=== PATIENT | female | born 1995 | race Caucasian/White ===

== ENCOUNTER 2017-11-01 13:32 | Inpatient (IN) | payer OTHER ==
[2017-11-01 14:33] LABS: ADD MAN DIFF? NO
[2017-11-01 14:37] LABS: BASOPHIL # 0.1 10^3/ul (0.0-0.1); BASOPHILS % 1.1 % (0.0-2.0); EOSINOPHILS % 0.5 % (0.0-7.0); HEMATOCRIT 42.5 % (37.0-47.0); HEMOGLOBIN 14.4 g/dl (12.0-16.0); LYMPHOCYTES % 27.2 % (15.0-51.0); MEAN CORPUSCULAR HEMOGLOBIN 31.7 pg (29.0-33.0); MEAN CORPUSCULAR HGB CONC 33.9 g/dl (32.0-37.0); MEAN CORPUSCULAR VOLUME 93.6 fl (82.0-101.0); MEAN PLATELET VOLUME 10.6 fl (7.4-10.4); MONOCYTE # 0.5 10^3/ul (0.3-0.9); MONOCYTES % 7.4 % (0.0-11.0); NEUTROPHIL # 4.6 10^3/ul (1.6-7.5); NEUTROPHILS % 63.7 % (39.0-77.0); PLATELET COUNT 299 10^3/UL (140-415); RED BLOOD COUNT 4.54 10^6/ul (4.20-5.40); RED CELL DISTRIBUTION WIDTH 11.6 % (11.5-14.5)
[2017-11-01 14:37] LABS: WHITE BLOOD COUNT 7.3 10^3/ul (4.8-10.8)
[2017-11-01 14:39] LABS: ADD UMIC YES; UR ASCORBIC ACID NEGATIVE (NEGATIVE); UR BILIRUBIN (Dip) NEGATIVE (NEGATIVE); UR BLOOD (Dip) NEGATIVE (NEGATIVE); UR CLARITY CLEAR (CLEAR); UR COLOR STRAW (YELLOW); UR GLUCOSE (Dip) NEGATIVE (NEGATIVE); UR KETONES (Dip) NEGATIVE (NEGATIVE); UR LEUKOCYTE ESTERASE (Dip) 1+ Leu/ul (NEGATIVE); UR NITRITE (Dip) NEGATIVE (NEGATIVE); UR RBC 0 /HPF (0-5); UR SQUAMOUS EPITHELIAL CELL FEW /HPF (FEW); UR TOTAL PROTEIN (Dip) NEGATIVE (NEGATIVE); UR UROBILINOGEN (Dip) NEGATIVE (NEGATIVE); UR WBC 0 /HPF (0-5)
[2017-11-01] MEDS: LORAZEPAM 2 MG INJ IV ×2 (14:57→20:03)
[2017-11-01] MEDS: SOD CHLORIDE 0.9% 1,000 ML IV ×2 (14:59→18:54)
[2017-11-01 15:02] LABS: ANION GAP 17 (8-16)
[2017-11-01 15:03] LABS: ALBUMIN/GLOBULIN RATIO 1.32
[2017-11-01 15:13] LABS: ALANINE AMINOTRANSFERASE 20 IU/L (13-69); ALBUMIN 4.5 g/dl (3.3-4.9); ALKALINE PHOSPHATASE 57 IU/L (42-121); ASPARTATE AMINO TRANSFERASE 24 IU/L (15-46); BILIRUBIN,INDIRECT 0.8 mg/dl (0-1.1); BILIRUBIN,TOTAL 0.8 mg/dl (0.2-1.3); BLOOD UREA NITROGEN 13 mg/dl (7-20); CALCIUM 9.3 mg/dl (8.4-10.2); CARBON DIOXIDE 28 mmol/L (21-31); CHLORIDE 103 mmol/L (97-110); CREATININE 0.83 mg/dl (0.44-1.00); GLUCOSE 82 mg/dl (70-220); SODIUM 144 mmol/L (135-144); TOTAL PROTEIN 7.9 g/dl (6.1-8.1)
[2017-11-01 15:26] LABS: MAGNESIUM 1.9 mg/dl (1.7-2.5)
[2017-11-01] MEDS ORDERED: ACETAMINOPHEN 325 MG TAB PO ×2 (18:30)
[2017-11-01] MEDS ORDERED: morphine 2 MG INJ IV (18:30)
[2017-11-01] MEDS ORDERED: NACL 0.9% 3 ML SYG IV (18:30)
[2017-11-01] MEDS ORDERED: HYDROCODONE/APAP (5/325) TAB PO (18:30)
[2017-11-01] MEDS ORDERED: MAGNESIUM HYDROXIDE 30ML CUP PO (18:30)
[2017-11-01] MEDS ORDERED: DOCUSATE SODIUM 100 MG CAP PO (18:30)
[2017-11-01 18:38] LABS: CREATINE KINASE 89 IU/L (23-200)
[2017-11-01] MEDS: FOSPHENYTOIN (PE) 1,000 MG in SOD CHLORIDE 0.9% 80 ML IVPB (19:05)
[2017-11-01 19:55] LABS: LACTIC ACID 1.3 mmol/L (0.5-2.0)
[2017-11-01] MEDS: LORAZEPAM 0.5 MG TAB PO (20:00)
[2017-11-01] MEDS: ONDANSETRON 4 MG INJ IV (20:23)
[2017-11-02 07:48] LABS: ADD MAN DIFF? NO
[2017-11-02 07:57] LABS: BASOPHIL # 0.1 10^3/ul (0.0-0.1); BASOPHILS % 1.1 % (0.0-2.0); EOSINOPHILS # 0.1 10^3/ul (0.0-0.5); EOSINOPHILS % 1.7 % (0.0-7.0); HEMATOCRIT 37.7 % (37.0-47.0); HEMOGLOBIN 12.9 g/dl (12.0-16.0); LYMPHOCYTES # 2.2 10^3/ul (0.8-2.9); LYMPHOCYTES % 31.2 % (15.0-51.0); MEAN CORPUSCULAR HGB CONC 34.2 g/dl (32.0-37.0); MEAN CORPUSCULAR VOLUME 93.5 fl (82.0-101.0); MEAN PLATELET VOLUME 10.7 fl (7.4-10.4); MONOCYTE # 0.6 10^3/ul (0.3-0.9); MONOCYTES % 7.9 % (0.0-11.0); NEUTROPHIL # 4.1 10^3/ul (1.6-7.5); NEUTROPHILS % 57.8 % (39.0-77.0); PLATELET COUNT 255 10^3/UL (140-415); RED BLOOD COUNT 4.03 10^6/ul (4.20-5.40); RED CELL DISTRIBUTION WIDTH 11.6 % (11.5-14.5)
[2017-11-02 07:57] LABS: WHITE BLOOD COUNT 7.1 10^3/ul (4.8-10.8)
[2017-11-02 08:18] LABS: ALANINE AMINOTRANSFERASE 17 IU/L (13-69); ALBUMIN 3.2 g/dl (3.3-4.9); ALBUMIN/GLOBULIN RATIO 1.23; ALKALINE PHOSPHATASE 43 IU/L (42-121); ANION GAP 10 (8-16); ASPARTATE AMINO TRANSFERASE 16 IU/L (15-46); BILIRUBIN,INDIRECT 0.2 mg/dl (0-1.1); BILIRUBIN,TOTAL 0.2 mg/dl (0.2-1.3); BLOOD UREA NITROGEN 11 mg/dl (7-20); CALCIUM 8.4 mg/dl (8.4-10.2); CARBON DIOXIDE 25 mmol/L (21-31); CHLORIDE 113 mmol/L (97-110); CREATININE 0.77 mg/dl (0.44-1.00); GLUCOSE 86 mg/dl (70-220); SODIUM 144 mmol/L (135-144); TOTAL PROTEIN 5.8 g/dl (6.1-8.1)
[2017-11-02] MEDS: FOSPHENYTOIN IVPB (11:31)
[2017-11-02] MEDS: SOD CHLORIDE 0.9% IVPB (11:31)
[2017-11-02] MEDS: ONDANSETRON 4 MG INJ IV (17:55)
[2017-11-02] MEDS: LEVETIRACETAM 500 MG TAB PO (20:54)
[2017-11-03 07:26] LABS: ADD MAN DIFF? NO
[2017-11-03 07:33] LABS: WHITE BLOOD COUNT 6.6 10^3/ul (4.8-10.8)
[2017-11-03 07:33] LABS: BASOPHIL # 0.1 10^3/ul (0.0-0.1); BASOPHILS % 1.2 % (0.0-2.0); EOSINOPHILS # 0.1 10^3/ul (0.0-0.5); EOSINOPHILS % 1.8 % (0.0-7.0); HEMATOCRIT 39.7 % (37.0-47.0); HEMOGLOBIN 13.3 g/dl (12.0-16.0); LYMPHOCYTES # 2.1 10^3/ul (0.8-2.9); LYMPHOCYTES % 31.2 % (15.0-51.0); MEAN CORPUSCULAR HEMOGLOBIN 31.6 pg (29.0-33.0); MEAN CORPUSCULAR HGB CONC 33.5 g/dl (32.0-37.0); MEAN CORPUSCULAR VOLUME 94.3 fl (82.0-101.0); MEAN PLATELET VOLUME 10.9 fl (7.4-10.4); MONOCYTE # 0.5 10^3/ul (0.3-0.9); MONOCYTES % 8.2 % (0.0-11.0); NEUTROPHIL # 3.8 10^3/ul (1.6-7.5); NEUTROPHILS % 57.4 % (39.0-77.0); PLATELET COUNT 269 10^3/UL (140-415); RED BLOOD COUNT 4.21 10^6/ul (4.20-5.40); RED CELL DISTRIBUTION WIDTH 11.5 % (11.5-14.5)
[2017-11-03 07:55] LABS: ANION GAP 13 (8-16); BLOOD UREA NITROGEN 12 mg/dl (7-20); CALCIUM 8.8 mg/dl (8.4-10.2); CARBON DIOXIDE 27 mmol/L (21-31); CHLORIDE 108 mmol/L (97-110); CREATININE 0.88 mg/dl (0.44-1.00); GLUCOSE 92 mg/dl (70-220); PHOSPHORUS 3.7 mg/dl (2.5-4.9); SODIUM 144 mmol/L (135-144)
[2017-11-03 07:59] LABS: PHENYTOIN (DILANTIN) 9.2 ug/ml (10.0-20.0)
[2017-11-03] MEDS: LEVETIRACETAM 500 MG TAB PO ×2 (08:38→20:17)
[2017-11-04 07:51] LABS: ADD MAN DIFF? NO
[2017-11-04 08:02] LABS: WHITE BLOOD COUNT 6.6 10^3/ul (4.8-10.8)
[2017-11-04 08:02] LABS: BASOPHIL # 0.1 10^3/ul (0.0-0.1); BASOPHILS % 1.5 % (0.0-2.0); EOSINOPHILS # 0.2 10^3/ul (0.0-0.5); EOSINOPHILS % 2.9 % (0.0-7.0); HEMATOCRIT 38.7 % (37.0-47.0); HEMOGLOBIN 13.2 g/dl (12.0-16.0); LYMPHOCYTES # 2.3 10^3/ul (0.8-2.9); LYMPHOCYTES % 34.8 % (15.0-51.0); MEAN CORPUSCULAR HGB CONC 34.1 g/dl (32.0-37.0); MEAN CORPUSCULAR VOLUME 93.9 fl (82.0-101.0); MEAN PLATELET VOLUME 10.8 fl (7.4-10.4); MONOCYTE # 0.6 10^3/ul (0.3-0.9); MONOCYTES % 8.6 % (0.0-11.0); NEUTROPHIL # 3.5 10^3/ul (1.6-7.5); PLATELET COUNT 255 10^3/UL (140-415); RED BLOOD COUNT 4.12 10^6/ul (4.20-5.40); RED CELL DISTRIBUTION WIDTH 11.6 % (11.5-14.5)
[2017-11-04 08:23] LABS: ANION GAP 13 (8-16); BLOOD UREA NITROGEN 13 mg/dl (7-20); CALCIUM 9.2 mg/dl (8.4-10.2); CARBON DIOXIDE 28 mmol/L (21-31); CHLORIDE 109 mmol/L (97-110); CREATININE 0.73 mg/dl (0.44-1.00); GLUCOSE 91 mg/dl (70-220); MAGNESIUM 1.8 mg/dl (1.7-2.5); PHOSPHORUS 4.5 mg/dl (2.5-4.9); POTASSIUM 4.3 mmol/L (3.5-5.1); SODIUM 146 mmol/L (135-144)
[2017-11-04] MEDS: LEVETIRACETAM 500 MG TAB PO (09:07)
== END 2017-11-04 17:09 | disposition home or self-care (01) | DRG 101 ==
LOC: FTE 13:32 → MS4 18:03
DX: G40.909 Epilepsy, unspecified, not intractable, without status epilepticus (principal)
CPT/HCPCS: 70450; 70553; 71045; 80048; 80053; 80185; 81001; 82550; 82962; 83605; 83735; 84100; 84703; 85025; 93005; 93306; 95819; 96374; 96375; 96376; 97116; 97161; 97167; 99285-25; G0378